=== PATIENT | female | born 1950 | race Caucasian/White ===

== ENCOUNTER 2016-12-08 15:17 | Emergency (ER) | payer BC, OTHER ==
[~2016-12-08] VITALS: Ht 157.5 cm; Wt 71.2 kg
[2016-12-08] MEDS ORDERED: LISI-603 PO (15:32)
[2016-12-08] MEDS ORDERED: CARV25TA2 PO (15:32)
[2016-12-08] MEDS ORDERED: CALC667C6 PO (15:32)
[2016-12-08] MEDS ORDERED: CHOL100043 PO (15:32)
[2016-12-08] MEDS ORDERED: OMEP40CA37 PO (15:32)
[2016-12-08] MEDS ORDERED: ASCO500C16 PO (15:32)
[2016-12-08] MEDS ORDERED: NPH,100V SQ (15:32)
[2016-12-08] MEDS ORDERED: ATOR40TA PO (15:32)
--- NOTE | 2016-12-08 15:35 | NUR ---
Dr Tolliver at the bedside for eval and exam.
[2016-12-08] MEDS ORDERED: HYDROCODONE/APAP 10-325 MG TABLET PO ONE (16:30)
[2016-12-08 16:32] VITALS: BP 150/76
--- NOTE | 2016-12-08 16:32 | NUR ---
Patient discharged to home in stable conditon. Written and verbal after care instructions given. Patient verbalizes understanding of instructions.
[2016-12-08] MEDS ORDERED: HYDROCODONE/APAP 10-325 MG TABLET ONE (16:40)
== END 2016-12-08 16:33 | disposition home or self-care (01) ==
LOC: ER 15:34
DX: R07.89 Other chest pain (principal); I10 Essential (primary) hypertension; E11.9 Type 2 diabetes mellitus without complications; Z99.2 Dependence on renal dialysis
CPT/HCPCS: 71020; 93005; A4663

== ENCOUNTER 2019-07-12 14:00 | Emergency (ER) | payer BC, OTHER ==
[~2019-07-12] VITALS: Ht 157.5 cm; Wt 80.3 kg
--- NOTE | 2019-07-12 14:18 | NUR ---
pt walked into er with own walker co n/v/d and abdominal pain, pt a dialysis pt. missed dialysis today beacause was too weak to go to dialysis. last dialysis on friday. pt in room, ekg done. placed on monitor.
[2019-07-12 14:53] LABS: BASOPHILS # (AUTO) 0.1 K/uL (0.0-8.0); BASOPHILS % (AUTO) 0.8 % (0.0-2.0); EOSINOPHILS % (AUTO) 0.5 % (0.0-7.0); HEMATOCRIT 36.1 % (31.2-41.9); LYMPHOCYTES # (AUTO) 0.6 K/uL (20.0-40.0); LYMPHOCYTES % (AUTO) 6.2 % (20.5-51.5); MEAN CORPUSCULAR HEMOGLOBIN 28.9 uug (24.7-32.8); MEAN CORPUSCULAR HGB CONC 33 g/dL (32.3-35.6); MEAN CORPUSCULAR VOLUME 87.2 fL (75.5-95.3); MONOCYTES # (AUTO) 0.5 K/uL (2.0-10.0); MONOCYTES % (AUTO) 5.2 % (0.0-11.0); NEUTROPHILS % (AUTO) 87.3 % (38.5-71.5); PLATELET COUNT (AUTO) 193 K/uL (179-408); RED BLOOD CELL COUNT(AUTO) 4.14 MIL/uL (3.63-4.92); WHITE BLOOD COUNT (AUTO) 9.1 K/uL (3.8-11.8)
[2019-07-12 15:01] LABS: CREATININE 6.3 mg/dL (0.6-1.3); POTASSIUM 3.3 mmol/L (3.5-5.1)
[2019-07-12 15:07] LABS: BILIRUBIN,DIRECT 0.3 mg/dL (0.0-0.2); BILIRUBIN,TOTAL 0.9 mg/dL (0.2-1.0); TOTAL PROTEIN, SERUM 7.3 g/dL (6.4-8.2)
--- NOTE | 2019-07-12 18:28 | NUR ---
DAVID MTALKING TO PRICILLA TORRES.
--- NOTE | 2019-07-12 19:15 | NUR ---
Assumed care of patient from day shift RN Grisi.
--- NOTE | 2019-07-12 20:55 | NUR ---
Called [facility], gave report to nurse Gerard. Patient to be transferred to [facility] room 201-A
--- NOTE | 2019-07-12 22:29 | NUR ---
Patient IV was accidentally dislodge. Started new IV on right hand #22G. BP taken and was 93/48. Dr Tolliver made aware and order Saline 1000ml IV bolus. Order carried out.
[2019-07-12] MEDS ORDERED: IV NORMAL SALINE 1000 ML BAG IV ONE (22:30)
--- NOTE | 2019-07-12 22:38 | NUR ---
Telephone call to [facility]/Rajani informed her of new IV site on right hand #22 and informed of latest BP and order for IVF and states understanding. 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
--- NOTE | 2019-07-12 23:10 | NUR ---
Patient picked up by [facility]. Accompanied by 3 paramedics via gurney. All belongings and records sent with patient and given to paramedics. Latest BP 134/71.
== END 2019-07-12 23:13 | disposition short-term general hospital (02) ==
LOC: ER 14:00
DX: K85.90 Acute pancreatitis without necrosis or infection, unspecified (principal); I12.0 Hypertensive chronic kidney disease with stage 5 chronic kidney disease or end stage renal disease; E11.22 Type 2 diabetes mellitus with diabetic chronic kidney disease; N18.6 End stage renal disease; Z99.2 Dependence on renal dialysis; Z79.4 Long term (current) use of insulin; Z79.899 Other long term (current) drug therapy
CPT/HCPCS: 36415; 70030-TC; 71045; 83690; 85025; 85730; 93005; A4663; J7030